=== PATIENT | female | born 1960 | race Caucasian/White ===

== ENCOUNTER 2016-09-29 15:49 | Inpatient (IN) ==
[2016-09-29] MEDS ORDERED: *HR* OxyCODONE Immed Rel 5 MG TABLET PO PRN (17:04)
[2016-09-29] MEDS ORDERED: *HR* Dextrose 50 % in Water (Syg) 50 ML SYRINGE IVP PRN (17:09)
[2016-09-29] MEDS ORDERED: D5% in Water 1,000 ML IV PRN (17:09)
[2016-09-29] MEDS ORDERED: Dextrose Gel 15 GM PO PRN ×2 (17:09)
[2016-09-29] MEDS: *HR* OxyCODONE Immed Rel 5 MG TABLET PO PRN (18:39)
[2016-09-29] MEDS: *HR* OxyCODONE ER (12 HR) 20 MG TABLET PO SCH (18:39)
[2016-09-29] MEDS ORDERED: NON-FORMULARY MEDICATION 1 EACH EACH (Insulin Glargine [Lantus] 40 UNIT) SQ SCH (21:00)
[2016-09-29] MEDS: *HR* LORazepam 1 MG TABLET PO SCH (21:09)
[2016-09-29] MEDS: Insulin LISPRO 300 UNITS/3 ML VIAL SQ SCH (21:09)
[2016-09-29] MEDS: Insulin DETEMIR 100 UNIT/ML X5UNITS SQ SCH (21:11)
[2016-09-30] MEDS: Levothyroxine 25 MCG TABLET PO SCH (05:43)
[2016-09-30] MEDS: *HR* Rivaroxaban 10 MG TABLET PO SCH (05:43)
[2016-09-30] MEDS: *HR* OxyCODONE ER (12 HR) 20 MG TABLET PO SCH ×2 (05:45→18:54)
[2016-09-30 05:46] LABS: Basophils % 0.4 %; Eosinophils # 0.3 K/mcL (0.0-0.6); Hematocrit 28.4 % (35.3-44.9); Hemoglobin 9.5 g/dL (11.5-15.4); Immature Granulocytes % 0.4 % (0-4); Lymphocytes # 2.4 K/mcL (0.6-4.6); Lymphocytes % 30.3 %; Mean Corpuscular HGB Conc 33.5 g/dL (31.6-35.5); Mean Corpuscular Hemoglobin 28.5 pg (28.0-33.3); Mean Corpuscular Volume 85.3 fL (83.0-100.0); Mean Platelet Volume 9.3 fL (9.4-12.4); Monocytes # 0.6 K/mcL (0.0-1.3); Neutrophils # 4.4 K/mcL (1.6-8.9); Platelet Count 205 K/mcL (140-400); Red Blood Count 3.33 M/mcL (3.82-4.97); Red Cell Distribution Width 13.2 % (11.5-14.5); Segmented Neutrophils % 56.9 %
[2016-09-30 05:55] LABS: BUN/Creatinine Ratio 25 (6-26); Blood Urea Nitrogen 27 mg/dL (7-20); Calcium 10.1 mg/dL (8.6-10.8); Carbon Dioxide 26 mEq/L (19-29); Chloride 102 mEq/L (98-109); Glucose 95 mg/dL (70-99); Osmolality,Calculated 287 (280-300); Potassium 4.5 mEq/L (3.5-4.5); Sodium 136 mEq/L (136-145); eGFR For African Americans > 60 (> 60); eGFR For Non-African Americans 52 (> 60)
[2016-09-30] MEDS: *HR* LORazepam 1 MG TABLET PO SCH ×2 (08:50→20:56)
[2016-09-30] MEDS: Pregabalin 25 MG CAPSULE PO SCH (08:50)
[2016-09-30] MEDS: Furosemide 20 MG TABLET PO SCH (08:50)
[2016-09-30] MEDS: Spironolactone 25 MG TABLET PO SCH (08:50)
[2016-09-30] MEDS: Insulin LISPRO 300 UNITS/3 ML VIAL SQ SCH ×4 (08:50→20:56)
[2016-09-30] MEDS: Insulin DETEMIR 100 UNIT/ML X5UNITS SQ SCH ×2 (08:56→20:57)
[2016-09-30] MEDS ORDERED: NON-FORMULARY MEDICATION 1 EACH EACH (Insulin Glargine [Lantus] 35 UNIT) SQ SCH (09:00)
[2016-09-30] MEDS: *HR* OxyCODONE Immed Rel 5 MG TABLET PO PRN ×2 (10:54→16:47)
--- NOTE | 2016-09-30 11:17 | Internal Med History&Physical ---
Date of Encounter: 09/30/16 Time of Encounter: 11:14 Assessment and Plan (1) S/P TKR (total knee replacement) Current visit: Yes Status: Acute Patient's here for right total knee replacement for rehabilitation. Qualifiers: Laterality: right Qualified Code(s): Z96.651 - Presence of right artificial knee joint Internal Medicine - H&P: HPI Admitted From: Hospital to Hospital Transfer Plans for Post Hospital Care: Home History of present illness: Ms. Mayo is a 56 year old female Past Med Surg Social Fam HX - Past Medical History Medical history: cirrhosis, diabetes, hypertension, other Psychiatric history: no psych history - Past Surgical History Surgical History: , cholecystectomy, hysterectomy, other - Social History Smoking Status: Never smoker Smokeless Tobacco Status: Yes Alcohol use: none Drug use: none - Family History Father Living Status: Internal Medicine - H&P: Meds DiphenhydraMINE [Benadryl] 25 mg PO DAILY 02/10/16 [History] Furosemide [Lasix] 20 mg PO DAILY 02/10/16 [History] Insulin Glargine [Lantus] 35 unit SQ DAILY 02/10/16 [History] LORazepam [Ativan] 1 mg PO BID 02/10/16 [History] Levothyroxine [Synthroid] 25 mcg PO DAILY 02/10/16 [History] Omeprazole [PriLOSEC] 20 mg PO DAILY 02/10/16 [History] Oxycodone HCl 5 mg PO Q6H PRN #10 capsule 02/10/16 [Rx] Pregabalin [Lyrica] 25 mg PO DAILY 02/10/16 [History] Spironolactone [Aldactone] 25 mg PO DAILY 02/10/16 [History] Cinacalcet [Sensipar] 30 mg PO DAILY 09/29/16 [History] Docusate [Colace] 200 mg PO DAILY 09/29/16 [History] Insulin Glargine [Lantus] 40 unit SQ HS 09/29/16 [History] Lisinopril [Zestril] 5 mg PO DAILY 09/29/16 [History] Allergies codeine Allergy (Verified 07/21/16 08:57) Difficulty Breathing ibuprofen Allergy (Verified 07/21/16 08:59) See Comments Cannot take d/t liver and kidney disease. acetaminophen Adverse Reaction (Verified 07/21/16 08:58) See Comments Cannot take d/t liver and kidney disease NSAIDS (Non-Steroidal Anti-Inflamma Adverse Reaction (Verified 09/29/16 16:28) See Comments All Systems PM: A 10-system review of systems was performed and is negative for pertinent findings except as documented above in the HPI. - Constitutional Vitals: Temp Pulse Resp BP Pulse Ox 97.7 F 74 18 125/65 95 09/30/16 07:08 09/30/16 07:08 09/30/16 07:08 09/30/16 07:08 09/30/16 07:08 - Head Head exam: Present: atraumatic, normocephalic - Neck Neck exam general surgery: Present: supple, trachea midline. Absent: lymphadenopathy - Cardiovascular Cardiovascular exam: Present: RRR, +S1, +S2. Absent: diastolic murmur, gallop, rubs, systolic murmur - GI/Abdominal GI/Abdominal exam: Present: normal bowel sounds, soft, no peritoneal signs. Absent: distended, tenderness Internal Med - H&P Results - Labs CBC & Chem 7: 09/30/16 05:25 09/30/16 05:25 Labs: Short CBC 09/30/16 Range/Units 05:25 WBC 7.8 (4.3-11.1) K/mcL Hgb 9.5 L (11.5-15.4) g/dL Hct 28.4 L (35.3-44.9) % Plt Count 205 (140-400) K/mcL Neutrophils # 4.4 (1.6-8.9) K/mcL BMP 09/30/16 05:25 Sodium 136 Potassium 4.5 Chloride 102 Carbon Dioxide 26 BUN 27 H Creatinine 1.09 Glucose 95 Calcium 10.1 Lab appears to be stable - VTE Documentation of Mechanical Device: Graduated compression elastic hosiery
[2016-09-30] MEDS: MOM Conc 10 ML UD.LIQ PO PRN (20:57)
[2016-10-01] MEDS: *HR* OxyCODONE Immed Rel 5 MG TABLET PO PRN ×3 (02:37→21:20)
--- NOTE | 2016-10-01 04:35 | Internal Med Progress Note ---
Date of Encounter: 10/01/16 Time of Encounter: 09:09 - Assessment and plan (1) S/P TKR (total knee replacement) Current Visit: Yes Status: Acute Assessment and plan: Significant postop pain requiring increasing pain meds. We will need to monitor amount of pain meds PT OT working in improving gait, balance in transfer. Good exercise tolerance. Qualifiers: Laterality: right Qualified Code(s): Z96.651 - Presence of right artificial knee joint - Time Spent With Patient less than 15 minutes - Subjective Interval history: Complains of significant left knee postop pain. Has OxyContin 20 mg twice a day scheduled. Needs 10 mg 3 times a day when necessary. Complains of constipation. No shortness of breath. No chest pain. - Constitutional Vitals: Temp Pulse Resp BP Pulse Ox 98.6 F 73 16 128/77 95 09/30/16 20:40 09/30/16 20:40 09/30/16 20:40 09/30/16 20:40 09/30/16 20:40 General appearance: Present: A&O X 3, pleasant, no acute distress - Respiratory Respiratory exam: Present: CTAB. Absent: accessory muscle use, rales, rhonchi, wheezes - Cardiovascular Cardiovascular exam: Present: RRR, +S1, +S2. Absent: diastolic murmur, gallop, rubs, systolic murmur - Expanded Lower Extremities Exam Knee exam: Present: erythema, swelling, tenderness Internal Medicine: Result - Labs CBC & Chem 7: 09/30/16 05:25 09/30/16 05:25 Labs: Short CBC 09/30/16 Range/Units 05:25 WBC 7.8 (4.3-11.1) K/mcL Hgb 9.5 L (11.5-15.4) g/dL Hct 28.4 L (35.3-44.9) % Plt Count 205 (140-400) K/mcL Neutrophils # 4.4 (1.6-8.9) K/mcL BMP 09/30/16 05:25 Sodium 136 Potassium 4.5 Chloride 102 Carbon Dioxide 26 BUN 27 H Creatinine 1.09 Glucose 95 Calcium 10.1 - VTE Documentation of Mechanical Device: Graduated compression elastic hosiery Consult Discharge Plan - Plan Referrals: Savannah Patterson, MANAGER ASSURANCE [Primary Care Provider] -
[2016-10-01] MEDS: Levothyroxine 25 MCG TABLET PO SCH (06:20)
[2016-10-01] MEDS: *HR* OxyCODONE ER (12 HR) 20 MG TABLET PO SCH ×2 (06:20→18:03)
[2016-10-01] MEDS: *HR* Rivaroxaban 10 MG TABLET PO SCH (06:20)
[2016-10-01] MEDS: Insulin LISPRO 300 UNITS/3 ML VIAL SQ SCH ×4 (08:06→21:20)
[2016-10-01] MEDS: *HR* LORazepam 1 MG TABLET PO SCH ×2 (08:43→21:19)
[2016-10-01] MEDS: Furosemide 20 MG TABLET PO SCH (08:43)
[2016-10-01] MEDS: Spironolactone 25 MG TABLET PO SCH (08:43)
[2016-10-01] MEDS: Pregabalin 25 MG CAPSULE PO SCH (08:43)
[2016-10-01] MEDS: Insulin DETEMIR 100 UNIT/ML X5UNITS SQ SCH ×2 (08:49→21:20)
[2016-10-01] MEDS: MOM Conc 10 ML UD.LIQ PO PRN (09:17)
[2016-10-02] MEDS: *HR* OxyCODONE ER (12 HR) 20 MG TABLET PO SCH ×2 (05:36→17:56)
[2016-10-02] MEDS: Levothyroxine 25 MCG TABLET PO SCH (05:36)
[2016-10-02] MEDS: *HR* Rivaroxaban 10 MG TABLET PO SCH (05:36)
[2016-10-02] MEDS: Furosemide 20 MG TABLET PO SCH (08:30)
[2016-10-02] MEDS: *HR* OxyCODONE Immed Rel 5 MG TABLET PO PRN ×2 (08:30→21:32)
[2016-10-02] MEDS: *HR* LORazepam 1 MG TABLET PO SCH ×2 (08:30→21:31)
[2016-10-02] MEDS: Insulin LISPRO 300 UNITS/3 ML VIAL SQ SCH ×4 (08:31→21:38)
[2016-10-02] MEDS: Spironolactone 25 MG TABLET PO SCH (08:31)
[2016-10-02] MEDS: Insulin DETEMIR 100 UNIT/ML X5UNITS SQ SCH ×2 (08:31→21:33)
[2016-10-02] MEDS: Pregabalin 25 MG CAPSULE PO SCH (08:31)
--- NOTE | 2016-10-02 12:17 | Internal Med Progress Note ---
Date of Encounter: 10/02/16 Time of Encounter: 12:00 - Assessment and plan (1) S/P TKR (total knee replacement) Current Visit: Yes Status: Acute Assessment and plan: Agents here for the above complaint. Seeing PT OT TR today as a day arrest. Qualifiers: Laterality: right Qualified Code(s): Z96.651 - Presence of right artificial knee joint - Time Spent With Patient less than 15 minutes - Subjective Interval history: Patient's only complaint is that somehow between being transferred from [place] to hear they lost her extension splint. Nursing is making an effort to get another one. She is using CPM and enjoys that and feels good. - Constitutional Vitals: Temp Pulse Resp BP Pulse Ox 97.2 F L 72 20 136/79 94 L 10/02/16 06:00 10/02/16 06:00 10/02/16 06:00 10/02/16 06:00 10/02/16 06:00 General appearance: Present: A&O X 3, pleasant, no acute distress - Head Head exam: Present: atraumatic, normal inspection, normocephalic - Neck Neck exam general surgery: Present: supple, trachea midline. Absent: lymphadenopathy - Respiratory Respiratory exam: Present: CTAB. Absent: accessory muscle use, rales, rhonchi, wheezes - Cardiovascular Cardiovascular exam: Present: RRR, +S1, +S2. Absent: diastolic murmur, gallop, rubs, systolic murmur Internal Medicine: Result - Labs CBC & Chem 7: 09/30/16 05:25 09/30/16 05:25 Labs: Lab looks okay - VTE Documentation of Mechanical Device: Graduated compression elastic hosiery Consult Discharge Plan - Plan Referrals: Savannah Patterson, SYSTEM ARCHIVE ANALYST [Primary Care Provider] -
[2016-10-03] MEDS: *HR* Rivaroxaban 10 MG TABLET PO SCH (05:41)
[2016-10-03] MEDS: *HR* OxyCODONE ER (12 HR) 20 MG TABLET PO SCH ×2 (05:41→17:33)
[2016-10-03] MEDS: Levothyroxine 25 MCG TABLET PO SCH (05:41)
[2016-10-03] MEDS: MOM Conc 10 ML UD.LIQ PO PRN ×2 (05:44→08:01)
[2016-10-03 06:16] LABS: Basophils % 0.4 %; Eosinophils # 0.3 K/mcL (0.0-0.6); Eosinophils % 3.7 %; Hematocrit 29.1 % (35.3-44.9); Hemoglobin 9.6 g/dL (11.5-15.4); Immature Granulocytes % 0.4 % (0-4); Lymphocytes # 2.4 K/mcL (0.6-4.6); Lymphocytes % 34.8 %; Mean Corpuscular Hemoglobin 28.2 pg (28.0-33.3); Mean Corpuscular Volume 85.3 fL (83.0-100.0); Mean Platelet Volume 9.2 fL (9.4-12.4); Monocytes # 0.8 K/mcL (0.0-1.3); Neutrophils # 3.5 K/mcL (1.6-8.9); Platelet Count 273 K/mcL (140-400); Red Blood Count 3.41 M/mcL (3.82-4.97); Red Cell Distribution Width 13.4 % (11.5-14.5); Segmented Neutrophils % 49.7 %
[2016-10-03 06:21] LABS: Calcium 10.3 mg/dL (8.6-10.8); Potassium 4.9 mEq/L (3.5-4.5)
[2016-10-03] MEDS: Insulin LISPRO 300 UNITS/3 ML VIAL SQ SCH ×4 (07:42→21:54)
[2016-10-03] MEDS: *HR* OxyCODONE Immed Rel 5 MG TABLET PO PRN ×3 (08:00→17:32)
[2016-10-03] MEDS: Pregabalin 25 MG CAPSULE PO SCH (08:00)
[2016-10-03] MEDS: Furosemide 20 MG TABLET PO SCH (08:02)
[2016-10-03] MEDS: Spironolactone 25 MG TABLET PO SCH (08:02)
[2016-10-03] MEDS: *HR* LORazepam 1 MG TABLET PO SCH ×2 (08:02→20:35)
[2016-10-03] MEDS: Insulin DETEMIR 100 UNIT/ML X5UNITS SQ SCH ×2 (08:14→21:51)
--- NOTE | 2016-10-03 11:32 | Internal Med Progress Note ---
Date of Encounter: 10/03/16 Time of Encounter: 11:30 - Assessment and plan (1) S/P TKR (total knee replacement) Current Visit: Yes Status: Acute Assessment and plan: PT OT working on improving balance, transfer, gait and endurance. Qualifiers: Laterality: right Qualified Code(s): Z96.651 - Presence of right artificial knee joint (2) Diabetes Current Visit: Yes Status: Chronic Assessment and plan: Accu-Chek is 122 today. On Levemir and oral meds. We will continue to follow Accu-Chek. 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 She has no energy. She is depressed. Complains of significant left knee postop pain. Has OxyContin 20 mg twice a day scheduled. Needs 10 mg 3 times a day when necessary. Complains of constipation. No shortness of breath. No chest pain. - Constitutional Vitals: Temp Pulse Resp BP Pulse Ox 98.6 F 63 18 122/77 95 10/03/16 07:46 10/03/16 07:46 10/03/16 07:46 10/03/16 07:46 10/03/16 07:46 General appearance: Present: A&O X 3, pleasant, no acute distress - Respiratory Respiratory exam: Present: CTAB. Absent: accessory muscle use, rales, rhonchi, wheezes - Cardiovascular Cardiovascular exam: Present: RRR, +S1, +S2. Absent: diastolic murmur, gallop, rubs, systolic murmur - GI/Abdominal GI/Abdominal exam: Present: normal bowel sounds, soft, no peritoneal signs. Absent: distended, tenderness - Expanded Lower Extremities Exam Knee exam: Present: full ROM, swelling, tenderness Lower Leg exam: Present: swelling - Incison Incision: Present: clean and dry - Neurological Exam Neurological exam: Present: CN II-XII intact, oriented X3, no focal deficits. Absent: pronater drift, facial droop, speech deficit Internal Medicine: Result - Labs CBC & Chem 7: 10/03/16 05:45 10/03/16 05:45 Labs: Short CBC 10/03/16 Range/Units 05:45 WBC 7.0 (4.3-11.1) K/mcL Hgb 9.6 L (11.5-15.4) g/dL Hct 29.1 L (35.3-44.9) % Plt Count 273 (140-400) K/mcL Neutrophils # 3.5 (1.6-8.9) K/mcL BMP 10/03/16 05:45 Sodium 134 L Potassium 4.9 H Chloride 97 L Carbon Dioxide 27 BUN 35 H Creatinine 1.18 H Glucose 112 H Calcium 10.3 - VTE Documentation of Mechanical Device: Graduated compression elastic hosiery Consult Discharge Plan - Plan Referrals: Savannah Patterson, BOILER COVERER HELPER [Primary Care Provider] -
[2016-10-03] MEDS: Nystatin POWDER 30 GM BOTTLE TP SCH (20:39)
[2016-10-04] MEDS: *HR* OxyCODONE Immed Rel 5 MG TABLET PO PRN ×3 (00:04→20:46)
--- NOTE | 2016-10-04 00:07 | Internal Med Progress Note ---
Date of Encounter: 10/04/16 Time of Encounter: 07:53 - Assessment and plan (1) S/P TKR (total knee replacement) Current Visit: Yes Status: Acute Assessment and plan: PT OT working on improving balance, transfer, gait and endurance. Qualifiers: Laterality: right Qualified Code(s): Z96.651 - Presence of right artificial knee joint (2) Diabetes Current Visit: Yes Status: Chronic Assessment and plan: Accu-Chek is 122 today. On Levemir and oral meds. We will continue to follow Accu-Chek. Qualifiers: Diabetes mellitus type: type 2 Diabetes mellitus complication status: with hyperglycemia Diabetes mellitus [facility] insulin use: with termite technician use Qualified Code(s): E11.65 - Type 2 diabetes mellitus with hyperglycemia; Z79.4 - custodial (current) use of insulin - Time Spent With Patient less than 15 minutes - Subjective Interval history: Complains of significant left knee postop pain. Has OxyContin 20 mg twice a day scheduled. Needs 10 mg 3 times a day when necessary. Complains of constipation. No shortness of breath. No chest pain. - Constitutional Vitals: Temp Pulse Resp BP Pulse Ox 98.2 F 66 14 113/68 97 10/03/16 19:00 10/03/16 19:00 10/03/16 19:00 10/03/16 19:00 10/03/16 19:00 General appearance: Present: A&O X 3, pleasant, no acute distress - Respiratory Respiratory exam: Present: CTAB. Absent: accessory muscle use, rales, rhonchi, wheezes - Cardiovascular Cardiovascular exam: Present: RRR, +S1, +S2. Absent: diastolic murmur, gallop, rubs, systolic murmur - Expanded Lower Extremities Exam Knee exam: Present: swelling, tenderness Gait: Present: antalgic - Incison Incision: Present: clean and dry Internal Medicine: Result - Labs CBC & Chem 7: 10/03/16 05:45 10/03/16 05:45 Labs: Short CBC 10/03/16 Range/Units 05:45 WBC 7.0 (4.3-11.1) K/mcL Hgb 9.6 L (11.5-15.4) g/dL Hct 29.1 L (35.3-44.9) % Plt Count 273 (140-400) K/mcL Neutrophils # 3.5 (1.6-8.9) K/mcL [facility] 10/03/16 05:45 Sodium 134 L Potassium 4.9 H Chloride 97 L Carbon Dioxide 27 BUN 35 H Creatinine 1.18 H Glucose 112 H Calcium 10.3 - VTE Documentation of Mechanical Device: Graduated compression elastic hosiery Consult Discharge Plan - Plan Referrals: Savannah Patterson, LINEN CLERK [Primary Care Provider] -
[2016-10-04] MEDS: *HR* Rivaroxaban 10 MG TABLET PO SCH (05:33)
[2016-10-04] MEDS: Levothyroxine 25 MCG TABLET PO SCH (05:33)
[2016-10-04] MEDS: *HR* OxyCODONE ER (12 HR) 20 MG TABLET PO SCH ×2 (05:33→17:42)
[2016-10-04] MEDS: Furosemide 20 MG TABLET PO SCH (08:20)
[2016-10-04] MEDS: *HR* LORazepam 1 MG TABLET PO SCH ×2 (08:20→20:46)
[2016-10-04] MEDS: Spironolactone 25 MG TABLET PO SCH (08:21)
[2016-10-04] MEDS: Pregabalin 25 MG CAPSULE PO SCH (08:21)
[2016-10-04] MEDS: Insulin LISPRO 300 UNITS/3 ML VIAL SQ SCH ×4 (08:21→20:47)
[2016-10-04] MEDS: Insulin DETEMIR 100 UNIT/ML X5UNITS SQ SCH ×2 (08:26→20:46)
[2016-10-04] MEDS ORDERED: Ondansetron ODT 4 MG TAB.RAPDIS SL PRN (08:31)
[2016-10-04] MEDS: Nystatin POWDER 30 GM BOTTLE TP SCH ×2 (12:03→20:46)
[2016-10-04] MEDS: MOM Conc 10 ML UD.LIQ PO PRN (20:46)
[2016-10-05] MEDS: *HR* OxyCODONE Immed Rel 5 MG TABLET PO PRN ×3 (01:03→14:39)
[2016-10-05] MEDS: Levothyroxine 25 MCG TABLET PO SCH (05:31)
[2016-10-05] MEDS: *HR* OxyCODONE ER (12 HR) 20 MG TABLET PO SCH (05:31)
[2016-10-05] MEDS: *HR* Rivaroxaban 10 MG TABLET PO SCH (05:31)
[2016-10-05] MEDS: MOM Conc 10 ML UD.LIQ PO PRN (08:51)
[2016-10-05] MEDS: *HR* LORazepam 1 MG TABLET PO SCH (08:52)
[2016-10-05] MEDS: Furosemide 20 MG TABLET PO SCH (08:52)
[2016-10-05] MEDS: Spironolactone 25 MG TABLET PO SCH (08:53)
[2016-10-05] MEDS: Pregabalin 25 MG CAPSULE PO SCH (08:53)
[2016-10-05] MEDS: Insulin LISPRO 300 UNITS/3 ML VIAL SQ SCH (08:53)
[2016-10-05] MEDS: Insulin DETEMIR 100 UNIT/ML X5UNITS SQ SCH (09:30)
[2016-10-05] MEDS: Nystatin POWDER 30 GM BOTTLE TP SCH (11:02)
[2016-10-05 12:43] VITALS: BP 112/63
--- NOTE | 2016-10-05 13:05 | Internal Med Progress Note ---
Date of Encounter: 10/05/16 Time of Encounter: 13:02 - Assessment and plan (1) S/P TKR (total knee replacement) Current Visit: Yes Status: Acute Assessment and plan: Patient's progressing rapidly with rehabilitation program Qualifiers: Laterality: right Qualified Code(s): Z96.651 - Presence of right artificial knee joint - Time Spent With Patient less than 15 minutes - Subjective Interval history: Patient has no complaints states she is just about ready to go all. Please see PT OT at the ER notes - Constitutional Vitals: Temp Pulse Resp BP Pulse Ox 97.8 F 76 16 112/63 95 10/05/16 12:42 10/05/16 12:42 10/05/16 12:42 10/05/16 12:42 10/05/16 12:42 General appearance: Present: A&O X 3, pleasant, no acute distress - Head Head exam: Present: atraumatic, normal inspection, normocephalic - Neck Neck exam general surgery: Present: supple, trachea midline. Absent: lymphadenopathy - Respiratory Respiratory exam: Present: CTAB. Absent: accessory muscle use, rales, rhonchi, wheezes - Cardiovascular Cardiovascular exam: Present: RRR, +S1, +S2. Absent: diastolic murmur, gallop, rubs, systolic murmur Internal Medicine: Result - Labs CBC & Chem 7: 10/03/16 05:45 10/03/16 05:45 Labs: There are some modest changes but think these are chronic in nature - VTE Documentation of Mechanical Device: Graduated compression elastic hosiery Consult Discharge Plan - Plan Referrals: Savannah Patterson, CLINICAL LABORATORY SERVICE TEACHER [Primary Care Provider] - Anil Mesa MD [Non-Partnered Physician] - 10/13/16 8:45 am
--- NOTE | 2016-10-06 11:47 | Discharge Summary ---
Date of Encounter: 10/06/16 Time of Encounter: 11:45 - Discharge Diagnosis (1) S/P TKR (total knee replacement) Priority: Primary Status: Acute Qualifiers: Laterality: right Qualified Code(s): Z96.651 - Presence of right artificial knee joint - Discharge Medications Home Medications: DiphenhydraMINE [Benadryl] 25 mg PO DAILY 02/10/16 [History] Furosemide [Lasix] 20 mg PO DAILY 02/10/16 [History] Insulin Glargine [Lantus] 35 unit SQ DAILY 02/10/16 [History] LORazepam [Ativan] 1 mg PO BID 02/10/16 [History] Levothyroxine [Synthroid] 25 mcg PO DAILY 02/10/16 [History] Omeprazole [PriLOSEC] 20 mg PO DAILY 02/10/16 [History] Oxycodone HCl 5 mg PO Q6H PRN #10 capsule 02/10/16 [Rx] Pregabalin [Lyrica] 25 mg PO DAILY 02/10/16 [History] Spironolactone [Aldactone] 25 mg PO DAILY 02/10/16 [History] Cinacalcet [Sensipar] 30 mg PO DAILY 09/29/16 [History] Docusate [Colace] 200 mg PO DAILY 09/29/16 [History] Insulin Glargine [Lantus] 40 unit SQ HS 09/29/16 [History] Lisinopril [Zestril] 5 mg PO DAILY 09/29/16 [History] Allergies/Adverse Reactions: Allergies codeine Allergy (Verified 07/21/16 08:57) Difficulty Breathing ibuprofen Allergy (Verified 07/21/16 08:59) See Comments Cannot take d/t liver and kidney disease. acetaminophen Adverse Reaction (Verified 07/21/16 08:58) See Comments Cannot take d/t liver and kidney disease NSAIDS (Non-Steroidal Anti-Inflamma Adverse Reaction (Verified 09/29/16 16:28) See Comments Date of admission: 09/29/16 15:49 Primary care physician: Savannah Patterson CNP Consults: 09/29/16 16:21 Consult to Occupational Therapy [CONS] Routine Comment: Evaluate, develop and implement POC Consult to Physical Therapy [CONS] Routine Comment: Evaluate, develop and implement POC Consult to Recreational Therapy [CONS] Routine Comment: Evaluate, develop and implement POC Consult to Rental Manager [CONS] Routine Reason for SW Consult: d/c planning Discharging clinician: Husam Kiser Anticipated date of discharge: 10/05/16 - Patient Status Disposition: Home, Self-Care Condition: Good Functional capacity at discharge: uses cane/walker Overall status at discharge: patient is progressing back to baseline - Discharge Instructions Instructions: Total Knee Replacement (DC), Diabetes Mellitus Type 2 in Adults ( DC), Surgical Site Infections (GEN) Follow Up With: Savannah Patterson CNP [Primary Care Provider] - (follow up with primary care provider in 5-10 days. ) Anil Mesa MD [Non-Partnered Physician] - 10/13/16 8:45 am - Diet and Activity Activity: ambulate only with your walker, as per physical therapy Diet: advance to your usual diet Interval History: Patient was admitted to [facility] rehabilitation unit status post total knee replacement. Hospital course: Ms. Mayo is a 56 year old female Patient is done well and is being discharged home with walker and should be able to do household distances. - Time Spent with Patient Total time spent providing and/or coordinating discharge services: Less than 30 minutes - Constitutional Vitals: Temp Pulse Resp BP Pulse Ox 97.8 F 76 16 112/63 95 10/05/16 12:42 10/05/16 12:42 10/05/16 12:42 10/05/16 12:42 10/05/16 12:42 General appearance: Present: A&O X 3, pleasant, no acute distress - Head Head exam: Present: atraumatic, normal inspection, normocephalic - Neck Neck exam general surgery: Present: supple, trachea midline. Absent: lymphadenopathy - Respiratory Respiratory exam: Present: CTAB. Absent: accessory muscle use, rales, rhonchi, wheezes - Cardiovascular Cardiovascular exam: Present: RRR, +S1, +S2. Absent: diastolic murmur, gallop, rubs, systolic murmur - VTE Documentation of Mechanical Device: Graduated compression elastic hosiery
== END 2016-10-05 15:00 | disposition home or self-care (01) | DRG 561 ==
LOC: INPGRE 15:49
PROVIDERS: ADMIT Internal Medicine; ATTEND Internal Medicine